=== PATIENT | female | born 2000 | race Two or more races ===

== ENCOUNTER 2025-04-04 12:30 | Emergency (ER) | payer OTHER, SELFPAY ==
[2025-04-04 12:31] VITALS: BP 134/89
--- NOTE | 2025-04-04 14:37 | ED.GENMED ---
History of Present Illness
General
Chief Complaint: Abdominal Symptoms
Source: patient and physician in private practice (Language line physician in private practice used)
Time Seen by Provider: 04/04/25 14:13
History of Present Illness
History of Present Illness:
24-year-old female presents emergency room for evaluation of bloody stools. Patient had an episode about a month ago where she had black and bloody stools. She was seen by her primary care provider who did some testing and found she was positive
for H. pylori. She took a course of antibiotics. She did not have any further bleeding until yesterday when she first noticed black stool. The stools now become more maroon. She has had 3 or 4 episodes of bloody stool since yesterday. No chest
pain, shortness of breath, dizziness or lightheadedness. Patient does not take any oral anticoagulants. She denies taking any aspirin or ibuprofen or other NSAIDs. She denies any previous abdominal surgery. She denies alcohol use. She does have
some epigastric abdominal pain
Phy Exam
Physical Exam
Physical Exam:
General: Awake, Alert, Oriented X3. No acute distress.
Vitals: unremarkable
Head: Atraumatic
Eyes: Pupils equal, EOMI
Throat: Airway intact, no exudates
Neck: Trachea midline
Lungs: Clear and equal b/l
Heart: Regular rate, no murmurs
Abd: Soft, Nontender, No pulsatile mass
Rectal: Essentially empty rectal vault, mucus heme-negative
Neuro: Nonfocal
Skin: Warm, dry, no rash
Extremities: pulses equal b/l, no edema
Course
Orders/Labs/Results
Orders:
Orders
04/04/25 14:36
IV Insert/Care/Rem.- Treatment PRN
Pantoprazole [Protonix IV] 80 mg IV NOW STA
04/04/25 14:37
Test Result ONCE
04/04/25 14:50
Complete Blood Count/With Diff Urgent
Comprehensive Metabolic Panel Urgent
HCG, Serum Qualitative Screen Urgent
Lipase Urgent
Manual Differential Urgent
Abnormal Lab Results
04/04/25
14:50
WBC 4.1 L 10^3/uL
(4.8-10.8)
RBC 3.12 L 10^6/uL
(4.20-5.40)
Hgb 10.2 L g/dL
(12.0-16.0)
Hct 28.9 L %
(37.0-47.0)
MCH 32.7 H pg
(27.0-31.0)
Plt Count 64 L 10^3/uL
(130-400)
MPV 11.3 H fL
(7.4-10.4)
Abs Neuts (Manual) 1.0 L 10^3/uL
(1.4-6.5)
Segmented Neutrophils 25 L %
(42-75)
Lymphocytes (Manual) 52 H %
(20-51)
04/04/25 14:50
04/04/25 14:50
Vital Signs
Initial and Last Documented VS:
Initial Vital Signs
Temp Pulse Resp BP Pulse Ox
98.2 F 85 18 134/89 100
04/04/25 12:31 04/04/25 12:31 04/04/25 12:31 04/04/25 12:31 04/04/25 12:31
Last Documented Vital Signs
Temp Pulse Resp BP Pulse Ox
98.2 F 68 16 118/77 98
04/04/25 12:31 04/04/25 17:04 04/04/25 17:04 04/04/25 17:04 04/04/25 17:04
MDM/Problems Addressed
Differential Diagnosis Includes:
Peptic ulcer disease, gastritis, duodenal ulcer
MDM/Problems Addressed:
Patient presents with having some black and red stools. She has not had any episodes for few hours. She is hemodynamically stable. She is young and otherwise healthy. Not on any anticoagulation. Recommend close outpatient follow-up with GI. I
communicated with GI on-call who will facilitate an appointment for her on Tuesday.
*Pulse Oximetry
SaO2: 100
Patient hypoxic: no
*Critical Care Note
Total Time (30-74mins, 75-104mins- exclusive of procedures): Not Applicable
ED Attending Note
-
Portions of this chart may have been created with voice recognition software.� Occasional wrong word or��sound alike� substitutions may have occurred due to the inherent limitations of voice recognition software.
Discharge Plan
Departure
Patient Disposition: Home (Routine Discharge)
Date of Disposition: 04/04/25
Time of Disposition: 16:45
Patient with high blood pressure during this ER visit?: No
Condition: Good
Discharge Problem:
Acute upper GI bleed
Instructions: GI bleed (DC)
Prescriptions:
New
pantoprazole [Protonix] [address] for susp in packet
40 mg PO BID Qty: 60 0RF
Referrals:
Prince Hedrick MD [Family Provider, Internal Medicine]
Chely Garcia MD [Active, Gastroenterology]
Activity Restrictions/Additional Instructions:
You should receive a call tomorrow from the GI doctors to schedule an appointment. You need to take the medication I prescribed twice a day. Return if you have heavy bleeding, feel short of breath or dizzy.
Interventions
Interventions:
*Risk Screen - Suicide Last Done: 04/04/25 12:35
*General Assessment Last Done: 04/04/25 13:29
*Neglect/Abuse Screening Last Done: 04/04/25 12:35
*ED- Fall Risk Assessment Last Done: 04/04/25 13:29
*ED COVID-19 Vaccine History Last Done: 04/04/25 13:29
*ED Influenza Vaccine History Last Done: 04/04/25 13:29
*Nursing Disposition Last Done: 04/04/25 17:04
KF-Ankfml-Afcaucrvcr Assessment Last Done: 04/04/25 13:30
Discharge Date and Time
Discharge Date/Time: 04/04/25 17:08
Print Language: [id number]
[2025-04-04 14:54] VITALS: BP 128/78
[2025-04-04] MEDS: PROTONIX IV 80 MG IV (14:54)
[2025-04-04 15:18] LABS: HCG, Serum Qualitative Screen Negative
[2025-04-04 15:21] LABS: ALT (SGPT) 14 U/L (0-35); AST (SGOT) 19 U/L (14-36); Albumin 4.9 g/dl (3.5-5.0); Alkaline Phosphatase 61 U/L (38-126); Blood Urea Nitrogen 11 mg/dl (7-17); Calcium 9.6 mg/dl (8.4-10.2); Carbon Dioxide 26 mmol/L (22-30); Chloride 104 mmol/L (98-107); Glucose 84 mg/dl (70-99); Lipase 39 U/L (23-300); Potassium 3.9 mmol/L (3.5-5.1); Sodium 139 mmol/L (135-145); Total Protein 8.0 g/dl (6.3-8.2); eGFR > 60.00
[2025-04-04 15:36] LABS: Hematocrit 28.9 % (37.0-47.0); Hemoglobin 10.2 g/dL (12.0-16.0); Mean Corp Hgb Conc. 35.3 g/dL (33.0-37.0); Mean Corpuscular Volume 92.6 fL (81.0-99.0); Platelet Count 64 10^3/uL (130-400); Red Cell Dist. Width 13.7 % (11.5-14.5)
[2025-04-04 16:04] LABS: Absolute Neutrophils -Man Diff 1.0 10^3/uL (1.4-6.5)
[2025-04-04 16:05] LABS: Normal RBC Morphology No; Platelets Checked Yes
[2025-04-04 16:06] LABS: Anisocytosis Slight; Microcytosis 1+; Ovalocytes 1+
[2025-04-04 16:08] LABS: Total Cells Counted 100
[2025-04-04 17:04] VITALS: BP 118/77
== END 2025-04-04 17:08 | disposition home or self-care (01) ==
LOC: EMR 12:30
PROVIDERS: EMERGENCY PHYSICIAN Emergency Medicine; FAMILY PHYSICIAN Internal Medicine
DX: K92.2 Gastrointestinal hemorrhage, unspecified (principal)
CPT/HCPCS: 99284; 96374; 80053; 83690; 84703; 85025